=== PATIENT | female | born 1950 | race Two or more races ===

== ENCOUNTER 2022-05-25 07:36 | Outpatient (CLI) | payer OTHER | END 2022-05-25 07:46 | disposition home or self-care (01) | LOC: LAB 07:36 | PROVIDERS: ATTEND Urology | DX: Z01.812 Encounter for preprocedural laboratory examination (principal); Z01.810 Encounter for preprocedural cardiovascular examination; I10 Essential (primary) hypertension; D68.8 Other specified coagulation defects ==